=== PATIENT | male | born 1950 | race Caucasian/White ===

== ENCOUNTER → 2016-05-20 | Outpatient (REF) | payer OTHER ==
[~2016-05-20] MED LIST: SING10TA32 PO; TAMS0.4C2 PO
== END ==
LOC: M SMT 16:58
PROVIDERS: ATTEND Urology
DX: C67.9 Malignant neoplasm of bladder, unspecified (principal)

== ENCOUNTER → 2016-08-05 | Outpatient (REF) | payer OTHER | LOC: M SMT 13:09 | PROVIDERS: ATTEND Urology | DX: C67.9 Malignant neoplasm of bladder, unspecified (principal) ==

== ENCOUNTER → 2016-11-11 | Outpatient (REF) | payer OTHER | LOC: M SMT 13:20 | PROVIDERS: ATTEND Urology | DX: C67.9 Malignant neoplasm of bladder, unspecified (principal) ==

== ENCOUNTER → 2017-03-20 | Outpatient (REF) | payer MEDICARE | LOC: M SMT 17:12 | PROVIDERS: ATTEND Urology | DX: C67.9 Malignant neoplasm of bladder, unspecified (principal) ==

== ENCOUNTER → 2017-06-09 | Outpatient (REF) | payer MEDICARE | LOC: M SMT 13:06 | DX: C67.9 Malignant neoplasm of bladder, unspecified (principal); Z53.8 Procedure and treatment not carried out for other reasons | CPT/HCPCS: 88108 ==

== ENCOUNTER → 2017-08-25 | Outpatient (REF) | payer MEDICARE, OTHER | LOC: M SMT 13:15 | DX: C67.9 Malignant neoplasm of bladder, unspecified (principal); R97.20 Elevated prostate specific antigen [PSA]; Z79.899 Other long term (current) drug therapy | CPT/HCPCS: 87086 ==

== ENCOUNTER → 2017-09-08 | Outpatient (CLI) | payer MEDICARE, OTHER | LOC: M SMT PRO 08:09 | DX: R97.20 Elevated prostate specific antigen [PSA] (principal) | CPT/HCPCS: G0416 ==

== ENCOUNTER → 2018-01-05 | Outpatient (REF) | payer MEDICARE, OTHER | LOC: M SMT 17:27 | DX: Z85.51 Personal history of malignant neoplasm of bladder (principal) | CPT/HCPCS: 88108 ==

== ENCOUNTER → 2018-09-13 | Outpatient (REF) | payer MEDICARE | LOC: M SMT 18:14 | PROVIDERS: ATTEND Urology | DX: C67.9 Malignant neoplasm of bladder, unspecified (principal) ==

== ENCOUNTER → 2019-01-14 | Outpatient (REF) | LOC: M LAB LCGH 10:32 | PROVIDERS: ATTEND Physician Assistant | DX: D22.39 Melanocytic nevi of other parts of face (principal) ==

== ENCOUNTER → 2019-03-21 | Outpatient (REF) | payer MEDICARE, OTHER | LOC: M SMT 13:07 | PROVIDERS: ATTEND Urology | DX: C67.9 Malignant neoplasm of bladder, unspecified (principal) ==

== ENCOUNTER → 2019-09-19 | Outpatient (REF) | payer MEDICARE | LOC: M SMT 17:23 | PROVIDERS: ATTEND Urology | DX: C67.9 Malignant neoplasm of bladder, unspecified (principal) ==

== ENCOUNTER → 2020-03-13 | Outpatient (REF) | payer MEDICARE | LOC: M SMT 13:04 | PROVIDERS: ATTEND Urology | DX: C67.9 Malignant neoplasm of bladder, unspecified (principal) ==

== ENCOUNTER → 2020-09-10 | Outpatient (REF) | payer MEDICARE | LOC: M SMT 13:17 | PROVIDERS: ATTEND Urology | DX: C67.9 Malignant neoplasm of bladder, unspecified (principal) ==

== ENCOUNTER → 2021-11-22 | Outpatient (REF) | payer MEDICARE | LOC: M SMT 17:10 | PROVIDERS: ATTEND Urology | DX: C67.9 Malignant neoplasm of bladder, unspecified (principal) ==

== ENCOUNTER → 2022-12-22 | Outpatient (REF) | payer MEDICARE ==
[~2022-12-22] MED LIST changes: +MONT-5 PO; -SING10TA32 PO
== END ==
LOC: M SMT 13:17
PROVIDERS: ATTEND Urology
DX: C67.9 Malignant neoplasm of bladder, unspecified (principal)

== ENCOUNTER → 2023-12-28 | Outpatient (REF) | payer OTHER | LOC: M SMT 12:32 | PROVIDERS: ATTEND Urology | DX: Z85.51 Personal history of malignant neoplasm of bladder (principal) ==

== ENCOUNTER → 2024-12-26 | Outpatient (REF) | payer OTHER | LOC: M SMT 15:06 | PROVIDERS: ATTEND Urology | DX: C67.9 Malignant neoplasm of bladder, unspecified (principal) ==